=== PATIENT | female | born 1940 | race Caucasian/White ===

== ENCOUNTER 2019-07-21 15:16 | Inpatient (IN) | payer MEDICARE ==
[~2019-07-21] VITALS: Ht 157.5 cm; Wt 50.8 kg
[2019-07-21 16:00] VITALS: BP 149/69
[2019-07-21] MEDS ORDERED: ADAL40PE SQ (17:08)
[2019-07-21] MEDS ORDERED: TRAV5DRO OP (17:08)
[2019-07-21] MEDS ORDERED: PRED1TAB PO (17:08)
[2019-07-21] MEDS ORDERED: METH1TAB29 PO (17:08)
[2019-07-21] MEDS ORDERED: BRIM5DRO2 OP (17:08)
[2019-07-21] MEDS ORDERED: ESTR0.5T PO (17:08)
[2019-07-21] MEDS ORDERED: AZAT50TA18 PO (17:08)
[2019-07-21] MEDS ORDERED: AMLO2.5T4 PO (17:08)
[2019-07-21] MEDS ORDERED: ENOX40DI SQ (17:08)
[2019-07-21] MEDS ORDERED: CHOL10002 PO (17:43)
[2019-07-21] MEDS ORDERED: SERT50TA PO (17:43)
[2019-07-21 20:51] VITALS: BP 160/73
[2019-07-21] MEDS ORDERED: Medication Not On Formulary EA (Methenamine Hippurate 1 GM) PO SCH (21:00)
[2019-07-21] MEDS ORDERED: diphenhydrAMINE 50 MG CAPSULE ONE (21:42)
[2019-07-21] MEDS: diphenhydrAMINE 50 MG CAPSULE PO PRN (21:48)
--- NOTE | 2019-07-22 00:51 | NUR ---
Patient admitted from [facility] S/P left hip IM nailing (07/13) by Dr Villarreal. AAOx4 OOB to bedside commode. Voiding freely. Needs attended. No acute distress noted. Denies any pain nor any discomfort. VSS. Kept comfortable. Will monitor patient. Fall precautions maintained. Siderails up for safety. Left hip dressing clean dry and intact.
[2019-07-22 04:55] VITALS: BP 189/87
--- NOTE | 2019-07-22 07:25 | NUR ---
End of shift note: slept well most of the shift. BP 189/87 HR 85 @ 6am today. Patient asymptomatic. Dr Alvarado aware. Hydralazine 10mg po PRN ordered for SBP>160 Will endorse to RN dayshift. Will monitor BP.
[2019-07-22] MEDS: CALCIUM MAGNESIUM PO SCH (08:48)
[2019-07-22] MEDS: SERTRALINE HCL 50 MG TABLET PO SCH (08:48)
[2019-07-22] MEDS: predniSONE 5 MG TABLET PO SCH ×2 (08:49→09:04)
[2019-07-22] MEDS: ENOXAPARIN SODIUM 40 MG/0.4 ML DISP.SYRIN SQ SCH (08:49)
[2019-07-22] MEDS: AMLODIPINE 2.5 MG TABLET PO SCH (08:53)
[2019-07-22] MEDS: CHOLECALCIFEROL 1,000 UNIT TABLET PO SCH (08:54)
[2019-07-22] MEDS ORDERED: Medication Not On Formulary EA (Travoprost (Travatan Z) 5 ML) OP SCH (09:00)
[2019-07-22] MEDS: BRIMONIDINE 0.2% OPHT DROP 10 ML BOTTLE LEFTEYE SCH (09:00)
[2019-07-22] MEDS: TIMOLOL MALEATE 0.5% OPHT DROP 5 ML BOTTLE LEFTEYE SCH (09:00)
[2019-07-22] MEDS ORDERED: Medication Not On Formulary EA (Brimonidine Tartrate/Timolol (Combigan Eye Drops) 5 ML) OP SCH (09:00)
[2019-07-22] MEDS: AZATHIOPRINE 50 MG TABLET PO SCH (09:03)
[2019-07-22] MEDS ORDERED: BISACODYL 5 MG TABLET.DR PO PRN (09:30)
[2019-07-22 09:53] LABS: BASOPHILS % (AUTO) 0.2 % (0.0-2.0); EOSINOPHILS # (AUTO) 0.2 K/uL (0.0-0.7); EOSINOPHILS % (AUTO) 1.4 % (0.0-7.0); HEMATOCRIT 38.6 % (31.2-41.9); HEMOGLOBIN 12.9 g/dL (10.9-14.3); LYMPHOCYTES # (AUTO) 2.4 K/uL (20.0-40.0); LYMPHOCYTES % (AUTO) 22.1 % (20.5-51.5); MEAN CORPUSCULAR HGB CONC 33 g/dL (32.3-35.6); MEAN CORPUSCULAR VOLUME 98.8 fL (75.5-95.3); MONOCYTES # (AUTO) 0.9 K/uL (2.0-10.0); MONOCYTES % (AUTO) 8.5 % (0.0-11.0); NEUTROPHILS # (AUTO) 7.3 K/uL (1.8-8.9); NEUTROPHILS % (AUTO) 67.8 % (38.5-71.5); PLATELET COUNT (AUTO) 277 K/uL (179-408); WHITE BLOOD COUNT (AUTO) 10.7 K/uL (3.8-11.8)
[2019-07-22 10:00] LABS: BILIRUBIN,TOTAL 0.8 mg/dL (0.2-1.0); CREATININE 1.1 mg/dL (0.6-1.3); MAGNESIUM 2.4 mg/dL (1.8-2.4); PHOSPHOROUS 3.5 mg/dL (2.5-4.9); POTASSIUM 3.5 mmol/L (3.5-5.1); TOTAL PROTEIN, SERUM 6.9 g/dL (6.4-8.2)
[2019-07-22 12:09] VITALS: BP 115/67
[2019-07-22 16:00] VITALS: BP 144/83
[2019-07-22] MEDS: HYDROCODONE/APAP 5-325MG TABLET PO PRN (18:55)
[2019-07-22 20:00] VITALS: BP 161/73
[2019-07-22] MEDS: LATANOPROST OPHT DROP 2.5 ML BOTTLE LEFTEYE SCH (22:00)
[2019-07-22] MEDS: hydrALAZINE HCL 50 MG TABLET PO PRN (23:07)
[2019-07-22] MEDS: diphenhydrAMINE 50 MG CAPSULE PO PRN (23:10)
[2019-07-23 07:42] VITALS: BP 139/76
[2019-07-23] MEDS: AZATHIOPRINE 50 MG TABLET PO SCH (08:24)
[2019-07-23] MEDS: CALCIUM MAGNESIUM PO SCH (08:24)
[2019-07-23] MEDS: AMLODIPINE 2.5 MG TABLET PO SCH (08:25)
[2019-07-23] MEDS: predniSONE 5 MG TABLET PO SCH (08:25)
[2019-07-23] MEDS: SERTRALINE HCL 50 MG TABLET PO SCH (08:26)
[2019-07-23] MEDS: CHOLECALCIFEROL 1,000 UNIT TABLET PO SCH (08:26)
[2019-07-23] MEDS: BRIMONIDINE 0.2% OPHT DROP 10 ML BOTTLE LEFTEYE SCH (08:27)
[2019-07-23] MEDS: TIMOLOL MALEATE 0.5% OPHT DROP 5 ML BOTTLE LEFTEYE SCH (08:27)
[2019-07-23] MEDS: ENOXAPARIN SODIUM 40 MG/0.4 ML DISP.SYRIN SQ SCH (08:28)
[2019-07-23] MEDS: HYDROCODONE/APAP 5-325MG TABLET PO PRN ×2 (08:35→20:19)
[2019-07-23 12:06] VITALS: BP 102/54
[2019-07-23 16:01] VITALS: BP 136/68
[2019-07-23 20:00] VITALS: BP 171/64
[2019-07-23] MEDS: hydrALAZINE HCL 50 MG TABLET PO PRN (20:20)
[2019-07-23] MEDS: LATANOPROST OPHT DROP 2.5 ML BOTTLE LEFTEYE SCH (20:26)
[2019-07-23] MEDS: diphenhydrAMINE 50 MG CAPSULE PO PRN (23:18)
[2019-07-24 04:00] VITALS: BP 168/81
[2019-07-24] MEDS: hydrALAZINE HCL 50 MG TABLET PO PRN (05:01)
--- NOTE | 2019-07-24 06:49 | NUR ---
Patient received in bed resting. No signs and symptoms of acute distress, no SOB noted. Patient slep well through the night, got up multiple times to use the restroom. BP 171/64 HR 74 @ 2000 gave hydralazine. BP 168/81 HR77 @0400 gave hydralazine. Patient asymptomatic. Blood pressure lowered. Patient requested [place] for pain, gave as per requested. Gave Benadryl, patient requested sleeping aid, gave as per requested. All needs attended to. Safety precaution in place, all items within patient reach.Will endorse next shift. Continue plan of care.
[2019-07-24] MEDS: AMLODIPINE 2.5 MG TABLET PO SCH (08:26)
[2019-07-24] MEDS: predniSONE 5 MG TABLET PO SCH (08:27)
[2019-07-24] MEDS: SERTRALINE HCL 50 MG TABLET PO SCH (08:27)
[2019-07-24] MEDS: HYDROCODONE/APAP 5-325MG TABLET PO PRN ×2 (08:27→19:32)
[2019-07-24] MEDS: CHOLECALCIFEROL 1,000 UNIT TABLET PO SCH (08:27)
[2019-07-24] MEDS: AZATHIOPRINE 50 MG TABLET PO SCH (08:30)
[2019-07-24] MEDS: TIMOLOL MALEATE 0.5% OPHT DROP 5 ML BOTTLE LEFTEYE SCH (08:37)
[2019-07-24] MEDS: CALCIUM MAGNESIUM PO SCH (08:38)
[2019-07-24] MEDS: BRIMONIDINE 0.2% OPHT DROP 10 ML BOTTLE LEFTEYE SCH (08:38)
[2019-07-24] MEDS: ENOXAPARIN SODIUM 40 MG/0.4 ML DISP.SYRIN SQ SCH (08:39)
--- NOTE | 2019-07-24 15:20 | NUR ---
INDIVIDUALIZED PLAN OF CARE
[2019-07-24 15:26] VITALS: BP 150/72
--- NOTE | 2019-07-24 19:01 | NUR ---
NO DISTRESS NOTED, PATIENT IS ALERT, ORIENTED X4, NO SOB, RESP EVEN NONLABORED.
[2019-07-24] MEDS: LATANOPROST OPHT DROP 2.5 ML BOTTLE LEFTEYE SCH (20:48)
[2019-07-24 21:01] VITALS: BP 119/80
--- NOTE | 2019-07-24 22:48 | NUR ---
aaox4. patient complaining of left hip pain upon initial rounds. Medicated with 1 tab of [place] as ordered. Relief noted. Needs attended.VSS. OOB to bedside commode. Voiding freely. No acute distress noted. Left hip dressing clean dry and intact. Will monitor patient.
[2019-07-24] MEDS: diphenhydrAMINE 50 MG CAPSULE PO PRN (23:15)
[2019-07-25 03:58] VITALS: BP 160/74
--- NOTE | 2019-07-25 06:39 | NUR ---
End of shift note: Slept well throughout the night. VSS. OOB to bedside commode. Voiding freely. Needs attended. No further complaints presented so far.
[2019-07-25] MEDS: SERTRALINE HCL 50 MG TABLET PO SCH (08:20)
[2019-07-25] MEDS: CHOLECALCIFEROL 1,000 UNIT TABLET PO SCH (08:20)
[2019-07-25] MEDS: AZATHIOPRINE 50 MG TABLET PO SCH (08:20)
[2019-07-25] MEDS: HYDROCODONE/APAP 5-325MG TABLET PO PRN (08:21)
[2019-07-25] MEDS: predniSONE 5 MG TABLET PO SCH (08:24)
[2019-07-25] MEDS: CALCIUM MAGNESIUM PO SCH (08:25)
[2019-07-25] MEDS: AMLODIPINE 2.5 MG TABLET PO SCH (08:25)
[2019-07-25] MEDS: ENOXAPARIN SODIUM 40 MG/0.4 ML DISP.SYRIN SQ SCH (08:28)
[2019-07-25 08:48] VITALS: BP 145/67
[2019-07-25] MEDS: TIMOLOL MALEATE 0.5% OPHT DROP 5 ML BOTTLE LEFTEYE SCH (09:31)
[2019-07-25] MEDS: BRIMONIDINE 0.2% OPHT DROP 10 ML BOTTLE LEFTEYE SCH (09:31)
[2019-07-25] MEDS: ACETAMINOPHEN 325 MG TABLET PO PRN (13:43)
[2019-07-25 15:17] VITALS: BP 141/65
[2019-07-25 20:18] VITALS: BP 161/55
[2019-07-25] MEDS: LATANOPROST OPHT DROP 2.5 ML BOTTLE LEFTEYE SCH (20:23)
--- NOTE | 2019-07-25 21:54 | NUR ---
alert and oriented x4 watching TV upon initial rounds. Needs attended. VSS. Kept comfortable. Tolerated po meds well. Compliant with care and meds. OOB with walker to the BR. Voiding freely. Will monitor patient.
[2019-07-25] MEDS: diphenhydrAMINE 50 MG CAPSULE PO PRN (23:42)
[2019-07-26 04:20] VITALS: BP_SYST 127; BP_SYST 169; BP_DIAS 47
[2019-07-26] MEDS: ACETAMINOPHEN 325 MG TABLET PO PRN ×2 (04:40→13:38)
[2019-07-26] MEDS: hydrALAZINE HCL 50 MG TABLET PO PRN (04:40)
[2019-07-26 06:30] VITALS: BP 119/41
--- NOTE | 2019-07-26 06:43 | NUR ---
End of shift note: Quiet night. aaox4 Ambulates with walker to the BR. Voiding well. Needs attended. Medicated with Tylenol as ordered. BP 169/54 HR 85. Medicated with hydralazine 50 mg. Will monitor patient's BP. Patient asymptomatic.Call rosales within reach. Siderails up for safety.
[2019-07-26 07:39] VITALS: BP 105/67
[2019-07-26] MEDS: HYDROCODONE/APAP 5-325MG TABLET PO PRN ×2 (08:40→17:07)
[2019-07-26] MEDS: BRIMONIDINE 0.2% OPHT DROP 10 ML BOTTLE LEFTEYE SCH (09:11)
[2019-07-26] MEDS: TIMOLOL MALEATE 0.5% OPHT DROP 5 ML BOTTLE LEFTEYE SCH (09:11)
[2019-07-26] MEDS: AZATHIOPRINE 50 MG TABLET PO SCH (09:12)
[2019-07-26] MEDS: predniSONE 5 MG TABLET PO SCH (09:12)
[2019-07-26] MEDS: SERTRALINE HCL 50 MG TABLET PO SCH (09:12)
[2019-07-26] MEDS: CALCIUM MAGNESIUM PO SCH (09:12)
[2019-07-26] MEDS: CHOLECALCIFEROL 1,000 UNIT TABLET PO SCH (09:12)
[2019-07-26] MEDS: AMLODIPINE 2.5 MG TABLET PO SCH (09:12)
[2019-07-26] MEDS: ENOXAPARIN SODIUM 40 MG/0.4 ML DISP.SYRIN SQ SCH (09:19)
[2019-07-26] MEDS: HUMIRA 40 MG/0.4 ML SQ SCH (10:17)
--- NOTE | 2019-07-26 15:47 | NUR ---
Patient continue pain management prior to therapy and if needed with good effect. Continue participates in therapy for therapeutic exercises, increase strenght and endurance. tolerated well. no complaint voiced during rounds. will continue monitor
[2019-07-26 16:00] VITALS: BP 134/53
[2019-07-26 20:18] VITALS: BP 139/53
[2019-07-26] MEDS: LATANOPROST OPHT DROP 2.5 ML BOTTLE LEFTEYE SCH (20:45)
--- NOTE | 2019-07-26 21:26 | NUR ---
watching TV upon initial round. aaox 4 OOB to the BR with walker with supervision. left hip dressing clean dry and intact. No acute distress noted. Pain med given as needed. Will monitor for relief.
[2019-07-27 04:21] VITALS: BP 118/54
--- NOTE | 2019-07-27 06:39 | NUR ---
End of shift report: AAOx4 Slept well most of the shift. Denies any pain nor any discomfort. Will monitor patient.
[2019-07-27 07:53] VITALS: BP 159/82
[2019-07-27] MEDS: CHOLECALCIFEROL 1,000 UNIT TABLET PO SCH (08:15)
[2019-07-27] MEDS: HYDROCODONE/APAP 5-325MG TABLET PO PRN ×2 (08:15→15:50)
[2019-07-27] MEDS: AMLODIPINE 2.5 MG TABLET PO SCH (08:16)
[2019-07-27] MEDS: BRIMONIDINE 0.2% OPHT DROP 10 ML BOTTLE LEFTEYE SCH (08:17)
[2019-07-27] MEDS: TIMOLOL MALEATE 0.5% OPHT DROP 5 ML BOTTLE LEFTEYE SCH (08:17)
[2019-07-27] MEDS: predniSONE 5 MG TABLET PO SCH (08:18)
[2019-07-27] MEDS: SERTRALINE HCL 50 MG TABLET PO SCH (08:18)
[2019-07-27] MEDS: AZATHIOPRINE 50 MG TABLET PO SCH (08:23)
[2019-07-27] MEDS: CALCIUM MAGNESIUM PO SCH (08:24)
[2019-07-27] MEDS: ENOXAPARIN SODIUM 40 MG/0.4 ML DISP.SYRIN SQ SCH (08:31)
[2019-07-27] MEDS: ACETAMINOPHEN 325 MG TABLET PO PRN (13:22)
--- NOTE | 2019-07-27 15:21 | NUR ---
INTERDISCIPLINARY TEAM CONFERENCE
[2019-07-27 15:38] VITALS: BP 109/56
[2019-07-27 20:12] VITALS: BP 139/58
[2019-07-27] MEDS: LATANOPROST OPHT DROP 2.5 ML BOTTLE LEFTEYE SCH (20:47)
--- NOTE | 2019-07-27 22:30 | NUR ---
RECEIVED PATIENT IN BED, ALERT AND VERBALLY RESPONSIVE. CAN MAKE NEEDS KNOWN. DENIES PAIN. RECEIVED DUE MEDICATION, TOLERATED WELL. PATIENT AMBULATES WITH WALKER TO BATHROOM WITH SUPERVISION. TOLERATED ACTIVITY WELL. WILL CONTINUE TO ANTICIPATE AND ATTEND TO NEEDS. WILL CONTINUE TO MONITOR PATIENT.
[2019-07-28] MEDS: diphenhydrAMINE 50 MG CAPSULE PO PRN ×2 (00:18→22:17)
[2019-07-28 04:16] VITALS: BP 163/72
[2019-07-28 05:15] VITALS: BP 165/69
[2019-07-28] MEDS: hydrALAZINE HCL 50 MG TABLET PO PRN (05:15)
[2019-07-28 05:54] VITALS: BP 148/50
--- NOTE | 2019-07-28 06:25 | NUR ---
PATIENT IS ALERT AND VERBALLY RESPONSIVE. PATIENT WAS ABLE TO SLEEP SHORTLY AFTER RECEIVING BENADRYL PER MD ORDER. WOKE UP AROUND 0500. PATIENT STATED "SHE FEELS RESTED." DENIES PAIN AT THIS TIME. PER PATIENT, "SHE USUALLY HAS PAIN UPON MOVEMENT BUT WHEN SHE'S JUST IN BED, THERE IS NO PAIN." PATIENT TOLERATED ALL MEDS RECEIVED. FALL AND SAFETY PRECAUTIONS OBSERVED. ALL NEEDS ATTENDED.
[2019-07-28 08:00] VITALS: BP 141/52
[2019-07-28] MEDS: CALCIUM MAGNESIUM PO SCH (08:25)
[2019-07-28] MEDS: SERTRALINE HCL 50 MG TABLET PO SCH (08:26)
[2019-07-28] MEDS: CHOLECALCIFEROL 1,000 UNIT TABLET PO SCH (08:26)
[2019-07-28] MEDS: ENOXAPARIN SODIUM 40 MG/0.4 ML DISP.SYRIN SQ SCH (08:27)
[2019-07-28] MEDS: predniSONE 5 MG TABLET PO SCH (08:28)
[2019-07-28] MEDS: AZATHIOPRINE 50 MG TABLET PO SCH (08:28)
[2019-07-28] MEDS: HYDROCODONE/APAP 5-325MG TABLET PO PRN ×2 (08:28→14:08)
[2019-07-28] MEDS: AMLODIPINE 2.5 MG TABLET PO SCH (08:30)
[2019-07-28] MEDS: BRIMONIDINE 0.2% OPHT DROP 10 ML BOTTLE LEFTEYE SCH (08:31)
[2019-07-28] MEDS: TIMOLOL MALEATE 0.5% OPHT DROP 5 ML BOTTLE LEFTEYE SCH (08:31)
--- NOTE | 2019-07-28 10:11 | NUR ---
Patient noted resting in bed, took all am medications, complaints of pain, prn [place] given at 0900, no signs of distress noted, call light in reach, bed locked and in lowest position, all needs met
[2019-07-28 16:18] VITALS: BP 93/68
--- NOTE | 2019-07-28 19:45 | NUR ---
Received patient in bed. AAO x4. No acute distress or SOB was noted. No complain of pain at this time. On room air. Physical assessment done. safety measures maintain, fall prevention observed. Skin assessed. Bed in locked and low position, side rails up x2 for safety, bed alarm on. Call light and frequently using items within reach. Continue to monitor.
[2019-07-28 20:41] VITALS: BP 144/58
[2019-07-28] MEDS: LATANOPROST OPHT DROP 2.5 ML BOTTLE LEFTEYE SCH (21:03)
[2019-07-29 06:06] VITALS: BP 136/62
--- NOTE | 2019-07-29 07:39 | NUR ---
Patient noted resting in bed with eyes closed, abdominal binder in place, no complaints of pain, no signs of distress noted, call light in reach, bed locked and in lowest position, all needs met at this time
[2019-07-29 08:00] VITALS: BP 129/53
[2019-07-29] MEDS: CHOLECALCIFEROL 1,000 UNIT TABLET PO SCH (08:44)
[2019-07-29] MEDS: HYDROCODONE/APAP 5-325MG TABLET PO PRN ×2 (08:44→14:21)
[2019-07-29] MEDS: predniSONE 5 MG TABLET PO SCH (08:44)
[2019-07-29] MEDS: CALCIUM MAGNESIUM PO SCH (08:44)
[2019-07-29] MEDS: SERTRALINE HCL 50 MG TABLET PO SCH (08:44)
[2019-07-29] MEDS: AZATHIOPRINE 50 MG TABLET PO SCH (08:44)
[2019-07-29] MEDS: BRIMONIDINE 0.2% OPHT DROP 10 ML BOTTLE LEFTEYE SCH (08:45)
[2019-07-29] MEDS: TIMOLOL MALEATE 0.5% OPHT DROP 5 ML BOTTLE LEFTEYE SCH (08:45)
[2019-07-29] MEDS: AMLODIPINE 2.5 MG TABLET PO SCH (08:58)
[2019-07-29] MEDS: ENOXAPARIN SODIUM 40 MG/0.4 ML DISP.SYRIN SQ SCH (09:00)
--- NOTE | 2019-07-29 18:39 | NUR ---
Patient medicated with norco twice this shift, refused to have left hip dressing changed, dressing is dry and intact at this time
--- NOTE | 2019-07-29 19:45 | NUR ---
Received patient while sitting in wheelchair. AAO x4. No acute distress or SOB was noted. No complain of pain at this time. On room air. Physical assessment done. safety measures maintain, fall prevention observed. Skin assessed. Bed in locked and low position, side rails up x2 for safety, bed alarm on. Call light and frequently using items within reach. Continue to monitor.
[2019-07-29 20:27] VITALS: BP 115/58
[2019-07-29] MEDS: LATANOPROST OPHT DROP 2.5 ML BOTTLE LEFTEYE SCH (20:36)
[2019-07-29] MEDS: diphenhydrAMINE 50 MG CAPSULE PO PRN (22:11)
[2019-07-30 04:24] VITALS: BP 163/60
[2019-07-30] MEDS: hydrALAZINE HCL 50 MG TABLET PO PRN (04:57)
--- NOTE | 2019-07-30 05:05 | NUR ---
Patient developed high BP:168/67, HR:71, No other symptoms noted. PRN Hydralazine 50 mg tab administered. Continue to monitor and will endorse to day shift nurse.
[2019-07-30 08:00] VITALS: BP 121/56
[2019-07-30] MEDS: CHOLECALCIFEROL 1,000 UNIT TABLET PO SCH (08:35)
[2019-07-30] MEDS: SERTRALINE HCL 50 MG TABLET PO SCH (08:36)
[2019-07-30] MEDS: AZATHIOPRINE 50 MG TABLET PO SCH (08:36)
[2019-07-30] MEDS: predniSONE 5 MG TABLET PO SCH (08:36)
[2019-07-30] MEDS: HYDROCODONE/APAP 5-325MG TABLET PO PRN ×2 (08:36→20:52)
[2019-07-30] MEDS: CALCIUM MAGNESIUM PO SCH (08:37)
[2019-07-30] MEDS: ENOXAPARIN SODIUM 40 MG/0.4 ML DISP.SYRIN SQ SCH (08:43)
[2019-07-30] MEDS: AMLODIPINE 2.5 MG TABLET PO SCH (08:55)
[2019-07-30] MEDS: BRIMONIDINE 0.2% OPHT DROP 10 ML BOTTLE LEFTEYE SCH (09:02)
[2019-07-30] MEDS: TIMOLOL MALEATE 0.5% OPHT DROP 5 ML BOTTLE LEFTEYE SCH (09:03)
--- NOTE | 2019-07-30 10:08 | NUR ---
Patient noted resting in bed, took all am medications, no complaints of pain, no signs of distress noted, call light in reach, bed locked and in lowest position, all needs met
[2019-07-30] MEDS ORDERED: LORAZEPAM 0.5 MG TABLET PO ONE (14:30)
--- NOTE | 2019-07-30 15:49 | NUR ---
ONE TIME ATIVAN 0.5 MG TAB GIVEN PER MD FAITH FOR ANXIETY
[2019-07-30 16:40] VITALS: BP 100/46
--- NOTE | 2019-07-30 19:30 | NUR ---
RECEIVED PT AWAKE, ALERT AND ORIENTEDX4. PT IN NO ACUTE RESPIRATORY DISTRESS. PT COMPLAINING OF PAIN. SAFETY AND COMFORT PROVIDED. WILL CONTINUE TO MONITOR.
[2019-07-30 20:22] VITALS: BP 107/48
[2019-07-30] MEDS: LATANOPROST OPHT DROP 2.5 ML BOTTLE LEFTEYE SCH (20:51)
[2019-07-30] MEDS: diphenhydrAMINE 50 MG CAPSULE PO PRN (22:35)
--- NOTE | 2019-07-30 23:54 | NUR ---
PT GIVEN NORCO AT 2051H FOR HIP PAIN. PT TOLERATED IT WELL. AFTER AN HOUR PT SAID HER PAIN SUBSIDED. WILL CONTINUE TO MONITOR.
[2019-07-31 04:45] VITALS: BP 110/54
--- NOTE | 2019-07-31 06:20 | NUR ---
PT IN NO ACUTE RESPIRATORY DISTRESS. IV INTACT. PRESCRIBED MEDICATION GIVEN AND PT TOLERATED IT WELL. PT GIVEN BENADRYL PRN LAST NIGHT FOR SLEEP PRESCRIBED.SAFETY AND COMFORT PROVIDED. ALL NEEDS ARE MET. WILL ENDORSE TO INCOMING NURSE FOR CONTIINUITY OF CARE.
[2019-07-31 07:48] VITALS: BP 135/63
[2019-07-31] MEDS: BRIMONIDINE 0.2% OPHT DROP 10 ML BOTTLE LEFTEYE SCH (09:11)
[2019-07-31] MEDS: TIMOLOL MALEATE 0.5% OPHT DROP 5 ML BOTTLE LEFTEYE SCH (09:12)
[2019-07-31] MEDS: AZATHIOPRINE 50 MG TABLET PO SCH (09:12)
[2019-07-31] MEDS: AMLODIPINE 2.5 MG TABLET PO SCH (09:13)
[2019-07-31] MEDS: CALCIUM MAGNESIUM PO SCH (09:13)
[2019-07-31] MEDS: CHOLECALCIFEROL 1,000 UNIT TABLET PO SCH (09:14)
[2019-07-31] MEDS: predniSONE 5 MG TABLET PO SCH (09:14)
[2019-07-31] MEDS: SERTRALINE HCL 50 MG TABLET PO SCH (09:15)
[2019-07-31] MEDS: ENOXAPARIN SODIUM 40 MG/0.4 ML DISP.SYRIN SQ SCH (09:20)
[2019-07-31] MEDS: HYDROCODONE/APAP 5-325MG TABLET PO PRN (12:55)
[2019-07-31 15:34] VITALS: BP 110/59
[2019-07-31] MEDS: ACETAMINOPHEN 325 MG TABLET PO PRN (17:03)
--- NOTE | 2019-07-31 17:09 | NUR ---
Patient continue therapy for increase strenght, theraputic exercise and endurance. Continue pain management if needed and prior to therapy. tolerated well. Patient for ff up consult with surgeon. Kelvin removed. Tylenol 650mg PRN given. will continue monitor
[2019-07-31 20:00] VITALS: BP 134/52
[2019-07-31] MEDS: LATANOPROST OPHT DROP 2.5 ML BOTTLE LEFTEYE SCH (20:13)
[2019-07-31] MEDS: diphenhydrAMINE 50 MG CAPSULE PO PRN (22:16)
[2019-08-01 04:00] VITALS: BP 146/65
[2019-08-01 07:38] VITALS: BP 129/54
[2019-08-01] MEDS: BRIMONIDINE 0.2% OPHT DROP 10 ML BOTTLE LEFTEYE SCH (08:45)
[2019-08-01] MEDS: TIMOLOL MALEATE 0.5% OPHT DROP 5 ML BOTTLE LEFTEYE SCH (08:46)
[2019-08-01] MEDS: CHOLECALCIFEROL 1,000 UNIT TABLET PO SCH (08:47)
[2019-08-01] MEDS: SERTRALINE HCL 50 MG TABLET PO SCH (08:47)
[2019-08-01] MEDS: HYDROCODONE/APAP 5-325MG TABLET PO PRN ×2 (08:47→15:46)
[2019-08-01] MEDS: predniSONE 5 MG TABLET PO SCH (08:47)
[2019-08-01] MEDS: CALCIUM MAGNESIUM PO SCH (08:48)
[2019-08-01] MEDS: AZATHIOPRINE 50 MG TABLET PO SCH (08:48)
[2019-08-01] MEDS: AMLODIPINE 2.5 MG TABLET PO SCH (08:53)
[2019-08-01] MEDS: ENOXAPARIN SODIUM 40 MG/0.4 ML DISP.SYRIN SQ SCH (08:55)
[2019-08-01] MEDS: ACETAMINOPHEN 325 MG TABLET PO PRN (13:17)
[2019-08-01 16:00] VITALS: BP 116/62
--- NOTE | 2019-08-01 19:03 | NUR ---
No change in Pt status throughout the shift. No acute distress or SOB. Pt requested PRN pain medication, [place] to be administered prior to therapy, and Tylenol for breakthrough discomfort. PRN medications administered per MD orders. Pt seen by MD, new Rx written for pain medication to be given upon discharge. All comfort and safety needs attended to promptly. Call light within reach. Will continue to monitor and endorse to oncoming RN.
[2019-08-01 20:00] VITALS: BP 144/52
[2019-08-01] MEDS: LATANOPROST OPHT DROP 2.5 ML BOTTLE LEFTEYE SCH (21:30)
[2019-08-01] MEDS: diphenhydrAMINE 50 MG CAPSULE PO PRN (22:51)
[2019-08-02 04:00] VITALS: BP 193/89
[2019-08-02] MEDS: hydrALAZINE HCL 50 MG TABLET PO PRN (04:31)
--- NOTE | 2019-08-02 05:05 | NUR ---
Patient developed high BP:162/79, HR:72, No other symptoms noted. PRN Hydralazine 50 mg tab administered. Continue to monitor and will endorse to day shift nurse.
[2019-08-02 08:00] VITALS: BP 121/63
--- NOTE | 2019-08-02 08:08 | NUR ---
Received patient in bed awake, Pt. is A/O x4. NO acute distress noted. VS stable, pt able to express self at all times. Patient asked for Ermine 325mg before PT/OT therapy. All other needs attended and will continue with care.
[2019-08-02] MEDS: CALCIUM MAGNESIUM PO SCH (08:41)
[2019-08-02] MEDS: AZATHIOPRINE 50 MG TABLET PO SCH (08:41)
[2019-08-02] MEDS: BRIMONIDINE 0.2% OPHT DROP 10 ML BOTTLE LEFTEYE SCH (08:42)
[2019-08-02] MEDS: TIMOLOL MALEATE 0.5% OPHT DROP 5 ML BOTTLE LEFTEYE SCH (08:43)
[2019-08-02] MEDS: predniSONE 5 MG TABLET PO SCH (08:43)
[2019-08-02] MEDS: SERTRALINE HCL 50 MG TABLET PO SCH (08:44)
[2019-08-02] MEDS: CHOLECALCIFEROL 1,000 UNIT TABLET PO SCH (08:44)
[2019-08-02] MEDS: HYDROCODONE/APAP 5-325MG TABLET PO PRN ×2 (08:45→11:04)
[2019-08-02] MEDS: ENOXAPARIN SODIUM 40 MG/0.4 ML DISP.SYRIN SQ SCH (08:46)
[2019-08-02] MEDS: AMLODIPINE 2.5 MG TABLET PO SCH (09:23)
[2019-08-02] MEDS: HUMIRA 40 MG/0.4 ML SQ SCH (10:49)
--- NOTE | 2019-08-02 10:50 | NUR ---
Family brought Humira medication, patient administered (injected) medication by self.
--- NOTE | 2019-08-02 11:15 | NUR ---
Patient administered [place] 5/325mg PO 1 tab PRN crushed for pain level of 8/10 and tolerated well. Addendum: 08/02/19 at 1748 by TARA HDZ RN RN WRONG CHARTING.
--- NOTE | 2019-08-02 11:20 | NUR ---
Patient was not given [place] 5/325mg PO 1 tab [place] at 11:04AM, wrong documentation.
[2019-08-02 16:00] VITALS: BP 128/58
[2019-08-02 20:00] VITALS: BP 141/58
[2019-08-02] MEDS: diphenhydrAMINE 50 MG CAPSULE PO PRN (21:58)
[2019-08-02] MEDS: LATANOPROST OPHT DROP 2.5 ML BOTTLE LEFTEYE SCH (21:58)
[2019-08-03] MEDS: HYDROCODONE/APAP 5-325MG TABLET PO PRN ×3 (01:17→13:17)
[2019-08-03 04:00] VITALS: BP 179/83
[2019-08-03] MEDS: hydrALAZINE HCL 50 MG TABLET PO PRN (04:41)
[2019-08-03 06:30] VITALS: BP 134/66
--- NOTE | 2019-08-03 07:26 | NUR ---
Pt awake, A&O x 3 and resting comfortably in bed upon receiving into care. No acute respiratory distress noted. Independent with mobility using a FWW. Pt requested norco pill once during shift and was given. Drsg to Lt hip C, D&I. BP elevated in am at 179/83, and was given Hydralazine PO 50 mg PRN. BP retaken after 1 hour and was 134/66. No voiced concerns.
[2019-08-03 07:50] VITALS: BP 95/53
[2019-08-03] MEDS: SERTRALINE HCL 50 MG TABLET PO SCH (08:26)
[2019-08-03] MEDS: CHOLECALCIFEROL 1,000 UNIT TABLET PO SCH (08:26)
[2019-08-03] MEDS: predniSONE 5 MG TABLET PO SCH (08:27)
[2019-08-03] MEDS: AZATHIOPRINE 50 MG TABLET PO SCH (08:27)
[2019-08-03] MEDS: CALCIUM MAGNESIUM PO SCH (08:27)
[2019-08-03] MEDS: ENOXAPARIN SODIUM 40 MG/0.4 ML DISP.SYRIN SQ SCH (08:37)
[2019-08-03] MEDS: BRIMONIDINE 0.2% OPHT DROP 10 ML BOTTLE LEFTEYE SCH (08:38)
[2019-08-03] MEDS: TIMOLOL MALEATE 0.5% OPHT DROP 5 ML BOTTLE LEFTEYE SCH (08:39)
[2019-08-03 13:25] VITALS: BP 109/54
[2019-08-03] MEDS: AMLODIPINE 2.5 MG TABLET PO SCH (13:25)
--- NOTE | 2019-08-03 15:02 | NUR ---
D/C TO HOME D/C INSTRUCTIONS GIVEN AND PRESCRIPTION GIVEN VERBALIZED UNDERSTANDING
== END 2019-08-03 14:30 | disposition home health service (06) | DRG 560 ==
PROVIDERS: ADMIT Physical Medicine & Rehabilitation Pain Medicine; ATTEND Physical Medicine & Rehabilitation Pain Medicine
DX: S72.142D Displaced intertrochanteric fracture of left femur, subsequent encounter for closed fracture with routine healing (principal); D68.59 Other primary thrombophilia; E44.0 Moderate protein-calorie malnutrition; K51.90 Ulcerative colitis, unspecified, without complications; W18.30XD Fall on same level, unspecified, subsequent encounter; H40.9 Unspecified glaucoma; I10 Essential (primary) hypertension; R73.9 Hyperglycemia, unspecified; M19.90 Unspecified osteoarthritis, unspecified site; R26.9 Unspecified abnormalities of gait and mobility; Z88.1 Allergy status to other antibiotic agents
CPT/HCPCS: 36415; 73502; 83735; 84100; 85025; A4663; J1650; J7500; J7512; Q0163

== ENCOUNTER 2021-08-03 21:32 | Inpatient (IN) | payer MEDICARE, BC ==
[~2021-08-03] VITALS: Ht 157.5 cm; Wt 52.2 kg
--- NOTE | 2021-08-03 20:00 | NUR ---
RECEIVED PATIENT VIA [facility] DIRECT FROM [facility] FOR REHAB ADMISSION. PATIENT IS A/O X4. VERY PLEASANT WHEN APPROACHED. NO C/O PAIN AT THIS TIME. NO RESP. DISTRESS NOTED. VS WNL. CALL LIGHT IN REACH. ALL NEEDS ATTENDED. WILL CONTINUE TO MONITOR AND ASSESS.
[2021-08-03 20:45] VITALS: BP 162/73
[~2021-08-03 21:32] MED LIST: ADAL40PE SQ; AMLO2.5T4 PO; AZAT50TA18 PO; BRIM5DRO2 OP; CHOL10002 PO; ENOX40DI SQ; ESTR0.5T PO; METH1TAB69 PO; PRED1TAB PO; SERT50TA PO; TRAV5DRO OP
[2021-08-03] MEDS ORDERED: ALPR0.255 PO (22:02)
[2021-08-03] MEDS ORDERED: CALC500T88 PO (22:02)
[2021-08-03] MEDS ORDERED: ESTR10TA VG (22:06)
[2021-08-03] MEDS ORDERED: ENTYVIO IV (22:11)
[2021-08-03] MEDS ORDERED: SERT50TA PO (22:11)
[2021-08-03] MEDS ORDERED: FLUT1DIS29 INH (22:11)
[2021-08-03] MEDS ORDERED: VITA1TAB20 PO (22:12)
[2021-08-04 04:00] VITALS: BP 137/77
--- NOTE | 2021-08-04 06:40 | NUR ---
PATIENT AWAKE IN BED. SLEPT AT VERY SMALL INTERVALS. NO C/O PAIN AT THIS TIME. NO RESP. DISTRESS NOTED. VS WNL. CALL LIGHT IN REACH. ALL NEEDS ATTENDED. WILL CONTINUE TO MONITOR AND ASSESS.
[2021-08-04] MEDS ORDERED: FLUTICASONE/SALMETEROL 500/50 EACH DISK.W.DEV INH SCH (07:05)
[2021-08-04 07:58] VITALS: BP 156/66
[2021-08-04] MEDS: ALPRAZOLAM 0.25 MG TABLET PO PRN (08:22)
[2021-08-04] MEDS: OXYCODONE HCL 5 MG TABLET PO PRN (08:22)
[2021-08-04] MEDS: CHOLECALCIFEROL 1,000 UNIT TABLET PO SCH (08:22)
[2021-08-04] MEDS: SERTRALINE HCL 50 MG TABLET PO SCH (08:23)
[2021-08-04] MEDS: REMEDY ESSENTIAL ZINC PASTE 113 GM TOP SCH ×2 (08:23→20:42)
[2021-08-04] MEDS: AMLODIPINE 2.5 MG TABLET PO SCH (08:23)
[2021-08-04] MEDS: predniSONE 5 MG TABLET PO SCH (08:23)
[2021-08-04] MEDS: ENOXAPARIN SODIUM 40 MG/0.4 ML DISP.SYRIN SQ SCH (08:24)
[2021-08-04] MEDS: VITAMIN B COMPLEX 1 TABLET PO SCH (08:29)
[2021-08-04] MEDS: FLUTICASONE/VILANTEROL 1 EACH BLST.W.DEV INH SCH (08:29)
[2021-08-04] MEDS ORDERED: Methenamine Hippurate 1 GM) PO SCH (09:00)
[2021-08-04] MEDS ORDERED: LATANOPROST OPHT DROP 2.5 ML BOTTLE OP SCH (09:00)
[2021-08-04] MEDS ORDERED: TIMOLOL OP SCH (09:00)
[2021-08-04] MEDS ORDERED: BRIMONIDINE TARTRATE OP SCH (09:00)
[2021-08-04] MEDS ORDERED: AZATHIOPRINE 50 MG TABLET PO SCH (09:00)
--- NOTE | 2021-08-04 11:34 | NUR ---
Received patient from nurse at this time for continuity of care. Patient is alert, not in any form of distress on room air. No complain of any discomfort. Assisted with her needs. Call light and frequently used items placed within patient's reach.
[2021-08-04] MEDS: BRIMONIDINE 0.2% OPHT DROP 10 ML BOTTLE LEFTEYE SCH (14:48)
[2021-08-04] MEDS: TIMOLOL MALEATE 0.5% OPHT DROP 5 ML BOTTLE LEFTEYE SCH (14:57)
[2021-08-04 16:27] VITALS: BP 110/53
[2021-08-04 20:00] VITALS: BP 128/62
[2021-08-04] MEDS: LATANOPROST OPHT DROP 2.5 ML BOTTLE LEFTEYE SCH (20:42)
[2021-08-04] MEDS: diphenhydrAMINE 50 MG CAPSULE PO PRN (21:17)
[2021-08-05] MEDS: OXYCODONE HCL 5 MG TABLET PO PRN ×3 (01:41→21:27)
--- NOTE | 2021-08-05 02:39 | NUR ---
AAOx4 Admitted for pelvic fracture secondary to a fall at home,but no surgical intervention. VSS. All meds tolerated, medicated for pain as needed. No ill effects noted. Fall precautions maintained. Siderails up for safety. Ambulates to the BR with assist. Voiding well. Will monitor patient. Call rosales within reach.
[2021-08-05 04:00] VITALS: BP 147/58
[2021-08-05 06:32] LABS: HEMATOCRIT 35.7 % (31.2-41.9); MEAN CORPUSCULAR HEMOGLOBIN 31.8 uug (24.7-32.8); MEAN CORPUSCULAR VOLUME 92.7 fL (75.5-95.3); PLATELET COUNT (AUTO) 192 K/uL (179-408)
[2021-08-05 07:03] LABS: PHOSPHOROUS 3.9 mg/dL (2.5-4.9)
[2021-08-05 08:43] VITALS: BP 131/60
[2021-08-05] MEDS: predniSONE 5 MG TABLET PO SCH ×2 (09:00→09:50)
[2021-08-05] MEDS: TIMOLOL MALEATE 0.5% OPHT DROP 5 ML BOTTLE LEFTEYE SCH (09:49)
[2021-08-05] MEDS: FLUTICASONE/VILANTEROL 1 EACH BLST.W.DEV INH SCH (09:49)
[2021-08-05] MEDS: BRIMONIDINE 0.2% OPHT DROP 10 ML BOTTLE LEFTEYE SCH (09:49)
[2021-08-05] MEDS: CHOLECALCIFEROL 1,000 UNIT TABLET PO SCH (09:50)
[2021-08-05] MEDS: AMLODIPINE 2.5 MG TABLET PO SCH (09:50)
[2021-08-05] MEDS: SERTRALINE HCL 50 MG TABLET PO SCH (09:50)
[2021-08-05] MEDS: REMEDY ESSENTIAL ZINC PASTE 113 GM TOP SCH ×2 (09:50→20:15)
[2021-08-05] MEDS: VITAMIN B COMPLEX 1 TABLET PO SCH (09:51)
[2021-08-05] MEDS: ENOXAPARIN SODIUM 40 MG/0.4 ML DISP.SYRIN SQ SCH (09:53)
[2021-08-05] MEDS: OXYCODONE HCL 5 MG TABLET PO SCH (14:23)
--- NOTE | 2021-08-05 15:31 | NUR ---
INTERDISCIPLINARY TEAM CONFERENCE
[2021-08-05 16:37] VITALS: BP 122/69
--- NOTE | 2021-08-05 17:27 | NUR ---
Patient request pain PRN medication during the shift. Dr Hassan order BID and HSPRN pain medication. patient stated it is effective and will inform RN for any concern. will continue to monitor.
--- NOTE | 2021-08-05 18:57 | NUR ---
Patient remained stable during the shift. no other concerns identified. kept safe at all times. all needs attended. will endorse to the next shift for continuity of care.
[2021-08-05 20:00] VITALS: BP 140/55
[2021-08-05] MEDS: DOCUSATE SODIUM 100 MG CAPSULE PO SCH (20:13)
[2021-08-05] MEDS: LATANOPROST OPHT DROP 2.5 ML BOTTLE LEFTEYE SCH (20:13)
--- NOTE | 2021-08-05 23:58 | NUR ---
AAOx4 Ambulates to the BR with supervision with walker. Continent of bowel and bladder. Remained stable most of the shift. Pain meds given as needed. Relief noted. Fall precautions maintained. Siderails up for safety. VSS
[2021-08-06 04:00] VITALS: BP 155/65
[2021-08-06 08:00] VITALS: BP 153/60
[2021-08-06] MEDS: OXYCODONE HCL 5 MG TABLET PO SCH ×2 (08:26→12:51)
[2021-08-06] MEDS: DOCUSATE SODIUM 100 MG CAPSULE PO SCH ×2 (08:26→20:49)
[2021-08-06] MEDS: predniSONE 5 MG TABLET PO SCH ×2 (08:27→08:36)
[2021-08-06] MEDS: SERTRALINE HCL 50 MG TABLET PO SCH (08:27)
[2021-08-06] MEDS: CHOLECALCIFEROL 1,000 UNIT TABLET PO SCH (08:27)
[2021-08-06] MEDS: FLUTICASONE/VILANTEROL 1 EACH BLST.W.DEV INH SCH (08:30)
[2021-08-06] MEDS: TIMOLOL MALEATE 0.5% OPHT DROP 5 ML BOTTLE LEFTEYE SCH (08:30)
[2021-08-06] MEDS: BRIMONIDINE 0.2% OPHT DROP 10 ML BOTTLE LEFTEYE SCH (08:30)
[2021-08-06] MEDS: VITAMIN B COMPLEX 1 TABLET PO SCH (08:31)
[2021-08-06] MEDS: REMEDY ESSENTIAL ZINC PASTE 113 GM TOP SCH ×2 (08:31→20:49)
[2021-08-06] MEDS: ENOXAPARIN SODIUM 40 MG/0.4 ML DISP.SYRIN SQ SCH (08:33)
[2021-08-06] MEDS: AMLODIPINE 2.5 MG TABLET PO SCH (08:34)
--- NOTE | 2021-08-06 09:27 | NUR ---
Patient refused Prednisone. education provided. Patient still refused. will continue to monitor.
--- NOTE | 2021-08-06 10:47 | NUR ---
INDIVIDUALIZED PLAN OF CARE
--- NOTE | 2021-08-06 13:07 | NUR ---
Patient is complaining of pain on the right wrist/hand, and left ankle with minimal swelling noted. Informed MD, order xray. will continue to monitor.
[2021-08-06 15:10] VITALS: BP 146/52
[2021-08-06 17:44] VITALS: BP 115/51
--- NOTE | 2021-08-06 18:43 | NUR ---
no acute distress identified during the shift. all needs attended. kept safe. will endorse to the next shift continuity of care.
[2021-08-06 20:00] VITALS: BP 162/69
[2021-08-06] MEDS: LATANOPROST OPHT DROP 2.5 ML BOTTLE LEFTEYE SCH (20:49)
[2021-08-06] MEDS: OXYCODONE HCL 5 MG TABLET PO PRN (20:54)
[2021-08-07 04:07] VITALS: BP 186/85
--- NOTE | 2021-08-07 04:09 | NUR ---
Latest BP 186/85, patient denies any s/s of HTN. Omid Orozco NP made aware with new order of Clonidine 0.1 mg x 1. Noted and carried out.
[2021-08-07] MEDS ORDERED: CLONIDINE HCL 0.1 MG TABLET PO ONE (04:15)
--- NOTE | 2021-08-07 05:47 | NUR ---
BP rechecked 137/65, 70. Will endorsed to oncoming shift accordingly.
[2021-08-07 05:48] VITALS: BP 137/65
[2021-08-07] MEDS: ALPRAZOLAM 0.25 MG TABLET PO PRN (05:53)
[2021-08-07 07:22] VITALS: BP 130/66
[2021-08-07] MEDS: FLUTICASONE/VILANTEROL 1 EACH BLST.W.DEV INH SCH (08:19)
[2021-08-07] MEDS: TIMOLOL MALEATE 0.5% OPHT DROP 5 ML BOTTLE LEFTEYE SCH (08:19)
[2021-08-07] MEDS: OXYCODONE HCL 5 MG TABLET PO SCH ×2 (08:19→12:33)
[2021-08-07] MEDS: BRIMONIDINE 0.2% OPHT DROP 10 ML BOTTLE LEFTEYE SCH (08:20)
[2021-08-07] MEDS: DOCUSATE SODIUM 100 MG CAPSULE PO SCH ×2 (08:20→20:35)
[2021-08-07] MEDS: AMLODIPINE 2.5 MG TABLET PO SCH (08:20)
[2021-08-07] MEDS: REMEDY ESSENTIAL ZINC PASTE 113 GM TOP SCH ×2 (08:21→20:35)
[2021-08-07] MEDS: CHOLECALCIFEROL 1,000 UNIT TABLET PO SCH (08:21)
[2021-08-07] MEDS: SERTRALINE HCL 50 MG TABLET PO SCH (08:21)
[2021-08-07] MEDS: predniSONE 5 MG TABLET PO SCH (08:21)
[2021-08-07] MEDS: ENOXAPARIN SODIUM 40 MG/0.4 ML DISP.SYRIN SQ SCH (08:22)
[2021-08-07] MEDS: VITAMIN B COMPLEX 1 TABLET PO SCH (08:31)
[2021-08-07 15:14] VITALS: BP 99/44
--- NOTE | 2021-08-07 16:28 | NUR ---
Pt seen and examine by DR Hassan with new order to D/C Oxyir at HS start MS Contin 15 mg QHS for pain management order noted and carry out
[2021-08-07 20:00] VITALS: BP 124/58
[2021-08-07] MEDS: LATANOPROST OPHT DROP 2.5 ML BOTTLE LEFTEYE SCH (20:35)
[2021-08-07] MEDS: MORPHINE SULFATE SR 15 MG TABLET.SA PO SCH (20:35)
[2021-08-07] MEDS: MIRALAX 17 GM POWD.PACK PO PRN (20:36)
[2021-08-08 04:00] VITALS: BP 156/66
--- NOTE | 2021-08-08 04:17 | NUR ---
Pt slept well during the night. In no apparent distress. No complain of pain or SOB. Needs attended , c/o of constipation medicated with Miralax as ordered assisted to the bedside commode as need it, no BM during this shift .Safety measure maintained bed in low position call light and all most need it items within reach bed alarm on, will continue to monitor closely.
[2021-08-08 07:35] VITALS: BP 123/51
[2021-08-08] MEDS: OXYCODONE HCL 5 MG TABLET PO SCH ×2 (08:45→12:56)
[2021-08-08] MEDS: DOCUSATE SODIUM 100 MG CAPSULE PO SCH ×2 (08:45→20:31)
[2021-08-08] MEDS: AMLODIPINE 2.5 MG TABLET PO SCH (08:45)
[2021-08-08] MEDS: predniSONE 5 MG TABLET PO SCH (08:45)
[2021-08-08] MEDS: SERTRALINE HCL 50 MG TABLET PO SCH (08:45)
[2021-08-08] MEDS: REMEDY ESSENTIAL ZINC PASTE 113 GM TOP SCH ×2 (08:46→21:56)
[2021-08-08] MEDS: CHOLECALCIFEROL 1,000 UNIT TABLET PO SCH (08:46)
[2021-08-08] MEDS: ENOXAPARIN SODIUM 40 MG/0.4 ML DISP.SYRIN SQ SCH (08:46)
[2021-08-08] MEDS: BRIMONIDINE 0.2% OPHT DROP 10 ML BOTTLE LEFTEYE SCH (08:47)
[2021-08-08] MEDS: VITAMIN B COMPLEX 1 TABLET PO SCH (08:48)
[2021-08-08] MEDS: FLUTICASONE/VILANTEROL 1 EACH BLST.W.DEV INH SCH (08:48)
[2021-08-08] MEDS: TIMOLOL MALEATE 0.5% OPHT DROP 5 ML BOTTLE LEFTEYE SCH (08:48)
[2021-08-08 15:26] VITALS: BP 146/59
[2021-08-08] MEDS: ENSURE ENLIVE (VAN) 240 ML LIQUID PO SCH (16:39)
--- NOTE | 2021-08-08 18:00 | NUR ---
No events during shift, pt is a/o x 4, takes medications as directed, participated with physical therapy. NO signs of acute distress. Will endorse to warehouse supervisor 3rd shift.
--- NOTE | 2021-08-08 19:00 | NUR ---
Received patient alert and oriented x4, no shortness of breath, no complaint of pain at this time. Seen walking to the bathroom with minimum assistance using walker. Safety precautions provided, Call light placed within reach.
--- NOTE | 2021-08-08 20:00 | NUR ---
BP 176/73, patient complaint of pain 09/20, morphine Po given as scheduled.
[2021-08-08] MEDS: LATANOPROST OPHT DROP 2.5 ML BOTTLE LEFTEYE SCH (20:31)
[2021-08-08] MEDS: MORPHINE SULFATE SR 15 MG TABLET.SA PO SCH (20:31)
[2021-08-08 22:00] VITALS: BP 150/76
--- NOTE | 2021-08-08 22:00 | NUR ---
BP rechecked 150/76, patient states Pain reduced to 2/10
[2021-08-09] MEDS: diphenhydrAMINE 50 MG CAPSULE PO PRN ×2 (01:59→23:10)
--- NOTE | 2021-08-09 01:59 | NUR ---
Patient has difficulty to fall asleep, requested for Benadryl PO, given.
[2021-08-09 04:00] VITALS: BP 150/75
--- NOTE | 2021-08-09 04:58 | NUR ---
Slept well after taking Benadryl, no complaint of pain, no shortness of breath noted. Patient in fair condition.
[2021-08-09] MEDS: AMLODIPINE 2.5 MG TABLET PO SCH ×2 (06:15→09:36)
[2021-08-09] MEDS: OXYCODONE HCL 5 MG TABLET PO SCH ×2 (06:15→11:55)
[2021-08-09] MEDS: ALPRAZOLAM 0.25 MG TABLET PO PRN (06:19)
[2021-08-09 07:39] VITALS: BP 140/53
[2021-08-09] MEDS: ENSURE ENLIVE (VAN) 240 ML LIQUID PO SCH (09:34)
[2021-08-09] MEDS: FLUTICASONE/VILANTEROL 1 EACH BLST.W.DEV INH SCH (09:35)
[2021-08-09] MEDS: BRIMONIDINE 0.2% OPHT DROP 10 ML BOTTLE LEFTEYE SCH (09:35)
[2021-08-09] MEDS: DOCUSATE SODIUM 100 MG CAPSULE PO SCH ×2 (09:35→20:41)
[2021-08-09] MEDS: TIMOLOL MALEATE 0.5% OPHT DROP 5 ML BOTTLE LEFTEYE SCH (09:35)
[2021-08-09] MEDS: CHOLECALCIFEROL 1,000 UNIT TABLET PO SCH (09:35)
[2021-08-09] MEDS: VITAMIN B COMPLEX 1 TABLET PO SCH (09:35)
[2021-08-09] MEDS: REMEDY ESSENTIAL ZINC PASTE 113 GM TOP SCH ×2 (09:36→20:41)
[2021-08-09] MEDS: predniSONE 5 MG TABLET PO SCH (09:36)
[2021-08-09] MEDS: ENOXAPARIN SODIUM 40 MG/0.4 ML DISP.SYRIN SQ SCH (09:37)
[2021-08-09] MEDS: SERTRALINE HCL 50 MG TABLET PO SCH (09:38)
[2021-08-09 15:05] VITALS: BP 120/64
[2021-08-09] MEDS: LATANOPROST OPHT DROP 2.5 ML BOTTLE LEFTEYE SCH (20:38)
[2021-08-09] MEDS: MORPHINE SULFATE SR 15 MG TABLET.SA PO SCH (20:41)
[2021-08-09 21:00] VITALS: BP 169/89
[2021-08-09 22:00] VITALS: BP 141/73
[2021-08-10 06:01] VITALS: BP 156/78
--- NOTE | 2021-08-10 06:30 | NUR ---
No significant event reported all night. Medicated once for pain, no further complaint presented. Slept good.. All needs attended and met. VS stable.
[2021-08-10 08:00] VITALS: BP 156/71
[2021-08-10] MEDS: SERTRALINE HCL 50 MG TABLET PO SCH (08:15)
[2021-08-10] MEDS: DOCUSATE SODIUM 100 MG CAPSULE PO SCH ×2 (08:15→20:23)
[2021-08-10] MEDS: CHOLECALCIFEROL 1,000 UNIT TABLET PO SCH (08:16)
[2021-08-10] MEDS: ENSURE ENLIVE (VAN) 240 ML LIQUID PO SCH (08:17)
[2021-08-10] MEDS: predniSONE 5 MG TABLET PO SCH (08:17)
[2021-08-10] MEDS: FLUTICASONE/VILANTEROL 1 EACH BLST.W.DEV INH SCH (08:17)
[2021-08-10] MEDS: VITAMIN B COMPLEX 1 TABLET PO SCH (08:18)
[2021-08-10] MEDS: BRIMONIDINE 0.2% OPHT DROP 10 ML BOTTLE LEFTEYE SCH (08:18)
[2021-08-10] MEDS: TIMOLOL MALEATE 0.5% OPHT DROP 5 ML BOTTLE LEFTEYE SCH (08:18)
[2021-08-10] MEDS: REMEDY ESSENTIAL ZINC PASTE 113 GM TOP SCH ×2 (08:19→20:24)
[2021-08-10] MEDS: OXYCODONE HCL 5 MG TABLET PO SCH ×2 (08:22→12:39)
[2021-08-10] MEDS: ENOXAPARIN SODIUM 40 MG/0.4 ML DISP.SYRIN SQ SCH (08:22)
[2021-08-10] MEDS: AMLODIPINE 2.5 MG TABLET PO SCH (08:54)
[2021-08-10 16:00] VITALS: BP 120/53
[2021-08-10] MEDS: MIRALAX 17 GM POWD.PACK PO PRN (18:07)
[2021-08-10] MEDS: LATANOPROST OPHT DROP 2.5 ML BOTTLE LEFTEYE SCH (20:23)
[2021-08-10] MEDS: MORPHINE SULFATE SR 15 MG TABLET.SA PO SCH (20:23)
[2021-08-10 21:10] VITALS: BP 127/67
[2021-08-11] MEDS: ALPRAZOLAM 0.25 MG TABLET PO PRN (04:37)
[2021-08-11 05:17] VITALS: BP 107/53
[2021-08-11 05:22] VITALS: BP 107/53
--- NOTE | 2021-08-11 06:25 | NUR ---
BP been elkevtaed due to severe pain. Medicated once for pain and Xanax as ordered and needed with good effect. Been instructing patient to request for pain medication before it reach its peaK to obtain a satisfactory effect.
[2021-08-11 08:00] VITALS: BP 127/69
[2021-08-11] MEDS: predniSONE 5 MG TABLET PO SCH (08:02)
[2021-08-11] MEDS: DOCUSATE SODIUM 100 MG CAPSULE PO SCH ×2 (08:02→20:11)
[2021-08-11] MEDS: CHOLECALCIFEROL 1,000 UNIT TABLET PO SCH (08:02)
[2021-08-11] MEDS: OXYCODONE HCL 5 MG TABLET PO SCH ×2 (08:02→12:03)
[2021-08-11] MEDS: SERTRALINE HCL 50 MG TABLET PO SCH (08:02)
[2021-08-11] MEDS: FLUTICASONE/VILANTEROL 1 EACH BLST.W.DEV INH SCH (08:03)
[2021-08-11] MEDS: ENSURE ENLIVE (VAN) 240 ML LIQUID PO SCH (08:03)
[2021-08-11] MEDS: AMLODIPINE 2.5 MG TABLET PO SCH (08:03)
[2021-08-11] MEDS: BRIMONIDINE 0.2% OPHT DROP 10 ML BOTTLE LEFTEYE SCH (08:04)
[2021-08-11] MEDS: VITAMIN B COMPLEX 1 TABLET PO SCH (08:04)
[2021-08-11] MEDS: TIMOLOL MALEATE 0.5% OPHT DROP 5 ML BOTTLE LEFTEYE SCH (08:04)
[2021-08-11] MEDS: ENOXAPARIN SODIUM 40 MG/0.4 ML DISP.SYRIN SQ SCH (08:07)
[2021-08-11] MEDS: REMEDY ESSENTIAL ZINC PASTE 113 GM TOP SCH ×2 (08:07→20:11)
[2021-08-11 16:12] VITALS: BP 105/57
--- NOTE | 2021-08-11 18:38 | NUR ---
no events noted during shift
[2021-08-11] MEDS: MORPHINE SULFATE SR 15 MG TABLET.SA PO SCH (20:11)
[2021-08-11] MEDS: LATANOPROST OPHT DROP 2.5 ML BOTTLE LEFTEYE SCH (20:14)
[2021-08-11 20:51] VITALS: BP_SYST 144; BP_SYST 189; BP_DIAS 62; BP_DIAS 65
[2021-08-11] MEDS: diphenhydrAMINE 50 MG CAPSULE PO PRN (22:01)
[2021-08-12] MEDS: MORPHINE SULFATE SR 15 MG TABLET.SA PO SCH ×2 (01:41→20:58)
[2021-08-12 04:16] VITALS: BP 151/70
--- NOTE | 2021-08-12 06:31 | NUR ---
Slept good.Medicated for pain as ordered. No further complaint presented all night. No significant event reported throughout the night. VS stable.
[2021-08-12 08:01] VITALS: BP 142/64
[2021-08-12] MEDS: CHOLECALCIFEROL 1,000 UNIT TABLET PO SCH (08:34)
[2021-08-12] MEDS: DOCUSATE SODIUM 100 MG CAPSULE PO SCH ×2 (08:34→20:58)
[2021-08-12] MEDS: SERTRALINE HCL 50 MG TABLET PO SCH (08:34)
[2021-08-12] MEDS: BRIMONIDINE 0.2% OPHT DROP 10 ML BOTTLE LEFTEYE SCH (08:35)
[2021-08-12] MEDS: ENSURE ENLIVE (VAN) 240 ML LIQUID PO SCH (08:35)
[2021-08-12] MEDS: AMLODIPINE 2.5 MG TABLET PO SCH (08:35)
[2021-08-12] MEDS: VITAMIN B COMPLEX 1 TABLET PO SCH (08:35)
[2021-08-12] MEDS: REMEDY ESSENTIAL ZINC PASTE 113 GM TOP SCH ×2 (08:37→20:58)
[2021-08-12] MEDS: ENOXAPARIN SODIUM 40 MG/0.4 ML DISP.SYRIN SQ SCH (08:37)
[2021-08-12] MEDS: OXYCODONE HCL 5 MG TABLET PO SCH ×2 (08:39→13:30)
[2021-08-12] MEDS: predniSONE 5 MG TABLET PO SCH (08:41)
[2021-08-12] MEDS: FLUTICASONE/VILANTEROL 1 EACH BLST.W.DEV INH SCH (08:43)
[2021-08-12] MEDS: TIMOLOL MALEATE 0.5% OPHT DROP 5 ML BOTTLE LEFTEYE SCH (08:46)
--- NOTE | 2021-08-12 09:22 | NUR ---
INTERDISCIPLINARY TEAM CONFERENCE
--- NOTE | 2021-08-12 13:53 | NUR ---
Informed Dr. Alvarado regarding patient's refusal to take due prednisone in the morning. MD saw and spoke to the patient and per MD it's OK to discontinue prednisone.
[2021-08-12 15:52] VITALS: BP 124/54
[2021-08-12 20:00] VITALS: BP 156/68
[2021-08-12] MEDS: LATANOPROST OPHT DROP 2.5 ML BOTTLE LEFTEYE SCH (20:58)
[2021-08-12] MEDS: diphenhydrAMINE 50 MG CAPSULE PO PRN (23:30)
[2021-08-13 04:00] VITALS: BP 160/55
[2021-08-13] MEDS: AMLODIPINE 2.5 MG TABLET PO SCH (05:06)
--- NOTE | 2021-08-13 05:38 | NUR ---
Scheduled Norvasc at am given earlier at 0500H due to BP elevated 160/55. will endorse.
[2021-08-13 06:39] LABS: HEMATOCRIT 34.4 % (31.2-41.9); MEAN CORPUSCULAR HEMOGLOBIN 31.5 uug (24.7-32.8); MEAN CORPUSCULAR VOLUME 92.7 fL (75.5-95.3); PLATELET COUNT (AUTO) 321 K/uL (179-408)
--- NOTE | 2021-08-13 06:45 | NUR ---
No other concern identified. Stable. will endorse to the next shift for continuity of care.
[2021-08-13 07:19] LABS: THYROID STIMULATING HORMONE 3.695 mIU/mL (0.358-3.740)
[2021-08-13 07:27] LABS: BILIRUBIN,TOTAL 0.5 mg/dL (0.2-1.0); CREATININE 0.8 mg/dL (0.6-1.3); PHOSPHOROUS 3.3 mg/dL (2.5-4.9); POTASSIUM 4.1 mmol/L (3.5-5.1)
[2021-08-13 07:30] VITALS: BP 101/51
[2021-08-13] MEDS: CHOLECALCIFEROL 1,000 UNIT TABLET PO SCH (08:04)
[2021-08-13] MEDS: OXYCODONE HCL 5 MG TABLET PO SCH ×2 (08:04→13:15)
[2021-08-13] MEDS: SERTRALINE HCL 50 MG TABLET PO SCH (08:04)
[2021-08-13] MEDS: BRIMONIDINE 0.2% OPHT DROP 10 ML BOTTLE LEFTEYE SCH (08:05)
[2021-08-13] MEDS: VITAMIN B COMPLEX 1 TABLET PO SCH (08:05)
[2021-08-13] MEDS: ENOXAPARIN SODIUM 40 MG/0.4 ML DISP.SYRIN SQ SCH (08:06)
[2021-08-13] MEDS: DOCUSATE SODIUM 100 MG CAPSULE PO SCH ×2 (08:07→20:52)
[2021-08-13] MEDS: FLUTICASONE/VILANTEROL 1 EACH BLST.W.DEV INH SCH (08:11)
[2021-08-13] MEDS: TIMOLOL MALEATE 0.5% OPHT DROP 5 ML BOTTLE LEFTEYE SCH (08:47)
[2021-08-13] MEDS: ENSURE ENLIVE (VAN) 240 ML LIQUID PO SCH (08:48)
[2021-08-13] MEDS: REMEDY ESSENTIAL ZINC PASTE 113 GM TOP SCH ×2 (08:48→20:52)
[2021-08-13 15:33] VITALS: BP 124/49
[2021-08-13 20:26] VITALS: BP 130/58
[2021-08-13] MEDS: LATANOPROST OPHT DROP 2.5 ML BOTTLE LEFTEYE SCH (20:52)
[2021-08-13] MEDS: MORPHINE SULFATE SR 15 MG TABLET.SA PO SCH (20:52)
[2021-08-13] MEDS: diphenhydrAMINE 50 MG CAPSULE PO PRN (22:21)
[2021-08-14 05:09] VITALS: BP 143/47
--- NOTE | 2021-08-14 06:27 | NUR ---
No other concern identified. remained stable. no acute distress noted. kept call light within reach. Frequent visual checks done. needs attended. all due meds given. skin care provided. will endorse to the next shift for continuity of care.
[2021-08-14 08:11] VITALS: BP 138/51
[2021-08-14] MEDS: DOCUSATE SODIUM 100 MG CAPSULE PO SCH ×3 (08:25→20:39)
[2021-08-14] MEDS: AMLODIPINE 2.5 MG TABLET PO SCH (08:25)
[2021-08-14] MEDS: SERTRALINE HCL 50 MG TABLET PO SCH (08:25)
[2021-08-14] MEDS: CHOLECALCIFEROL 1,000 UNIT TABLET PO SCH (08:26)
[2021-08-14] MEDS: VITAMIN B COMPLEX 1 TABLET PO SCH (08:26)
[2021-08-14] MEDS: TIMOLOL MALEATE 0.5% OPHT DROP 5 ML BOTTLE LEFTEYE SCH (08:26)
[2021-08-14] MEDS: OXYCODONE HCL 5 MG TABLET PO SCH ×2 (08:31→13:07)
[2021-08-14] MEDS: ENSURE ENLIVE (VAN) 240 ML LIQUID PO SCH (08:31)
[2021-08-14] MEDS: FLUTICASONE/VILANTEROL 1 EACH BLST.W.DEV INH SCH (08:32)
[2021-08-14] MEDS: ENOXAPARIN SODIUM 40 MG/0.4 ML DISP.SYRIN SQ SCH (08:33)
[2021-08-14] MEDS: REMEDY ESSENTIAL ZINC PASTE 113 GM TOP SCH ×2 (08:34→20:35)
[2021-08-14] MEDS: BRIMONIDINE 0.2% OPHT DROP 10 ML BOTTLE LEFTEYE SCH (08:59)
[2021-08-14 17:15] VITALS: BP 144/52
[2021-08-14] MEDS: MORPHINE SULFATE SR 15 MG TABLET.SA PO SCH (20:35)
[2021-08-14] MEDS: LATANOPROST OPHT DROP 2.5 ML BOTTLE LEFTEYE SCH (20:35)
[2021-08-14 20:39] VITALS: BP 165/65
[2021-08-14] MEDS: diphenhydrAMINE 50 MG CAPSULE PO PRN (22:52)
--- NOTE | 2021-08-15 01:31 | NUR ---
Patient reported discomfort on the right thigh/leg around midnight. Rechecked after an hour, per patient she is comfortable and no report of pain or discomfort. will continue to monitor.
[2021-08-15 04:23] VITALS: BP 160/60
[2021-08-15 04:34] VITALS: BP 140/66
--- NOTE | 2021-08-15 04:35 | NUR ---
Patient was noted with elevated BP at night, scheduled pain medication given as ordered. at 0400H, bp rechecked 140/66mmHg. Patient stated no pain noted, able to rest.
--- NOTE | 2021-08-15 06:30 | NUR ---
No distress noted. scheduled xray today prior to dc as ordered, followed up with radiology. all needs attended. call light within reach. will endorse to the next shift for continuity of care.
[2021-08-15 08:11] VITALS: BP 135/73
[2021-08-15] MEDS: ENSURE ENLIVE (VAN) 240 ML LIQUID PO SCH (08:26)
[2021-08-15] MEDS: REMEDY ESSENTIAL ZINC PASTE 113 GM TOP SCH (08:27)
[2021-08-15] MEDS: BRIMONIDINE 0.2% OPHT DROP 10 ML BOTTLE LEFTEYE SCH (08:29)
[2021-08-15] MEDS: TIMOLOL MALEATE 0.5% OPHT DROP 5 ML BOTTLE LEFTEYE SCH (08:29)
[2021-08-15] MEDS: FLUTICASONE/VILANTEROL 1 EACH BLST.W.DEV INH SCH (08:29)
[2021-08-15] MEDS: OXYCODONE HCL 5 MG TABLET PO SCH ×2 (08:41→12:51)
[2021-08-15] MEDS: CHOLECALCIFEROL 1,000 UNIT TABLET PO SCH (08:41)
[2021-08-15 08:42] VITALS: BP 135/73
[2021-08-15] MEDS: SERTRALINE HCL 50 MG TABLET PO SCH (08:42)
[2021-08-15] MEDS: AMLODIPINE 2.5 MG TABLET PO SCH (08:42)
[2021-08-15] MEDS: ENOXAPARIN SODIUM 40 MG/0.4 ML DISP.SYRIN SQ SCH (08:43)
[2021-08-15] MEDS: VITAMIN B COMPLEX 1 TABLET PO SCH (09:50)
[2021-08-15] MEDS: DOCUSATE SODIUM 100 MG CAPSULE PO SCH (09:50)
--- NOTE | 2021-08-15 15:20 | NUR ---
Remained stable. no acute distress noted. kept call light within reach. needs attended. all due Meds given. Pt discharge home all discharge instructions , X-ray CD ,and personal belonging given to patient ,prescription refills by [facility] ,ID band was removed , she was wheel man on W/C by staff pick up worker by her friend via private car.
== END 2021-08-15 15:20 | disposition home health service (06) | DRG 560 ==
PROVIDERS: ADMIT Physical Medicine & Rehabilitation Pain Medicine; ATTEND Physical Medicine & Rehabilitation Pain Medicine
DX: M80.0AXD Age-related osteoporosis with current pathological fracture, other site, subsequent encounter for fracture with routine healing (principal); D68.59 Other primary thrombophilia; J44.9 Chronic obstructive pulmonary disease, unspecified; K52.9 Noninfective gastroenteritis and colitis, unspecified; I10 Essential (primary) hypertension; R29.6 Repeated falls; H40.9 Unspecified glaucoma; E88.09 Other disorders of plasma-protein metabolism, not elsewhere classified; F41.9 Anxiety disorder, unspecified; I48.0 Paroxysmal atrial fibrillation; W01.0XXD Fall on same level from slipping, tripping and stumbling without subsequent striking against object, subsequent encounter; Z88.1 Allergy status to other antibiotic agents; M06.9 Rheumatoid arthritis, unspecified
CPT/HCPCS: 36415; 73110; 73130; 73610; 82652; 83550; 83735; 84100; 84443; 85025; 97161; 97535-GO-CO; J1650; J7500; J7512; Q0163